=== PATIENT | female | born 1935 | race Caucasian/White ===

== ENCOUNTER 2025-02-26 22:01 | Emergency (ER) | payer OTHER, SELFPAY ==
[2025-02-26 22:04] VITALS: BP 144/97
[2025-02-26 22:47] LABS: % Basophils 0.4 % (0-2); % Eosinophils 0.5 % (0-6); % Immature Granulocytes 0.3 % (0-0.5); % Lymphocytes 27.1 % (20.5-51.1); % Monocytes 7.8 % (1.7-9.3); % Neutrophils 63.9 % (42.2-75.2); Absolute Lymphocytes 2.1 10^3/uL (1.2-3.4); Absolute Monocytes 0.6 10^3/uL (0.1-0.6); Absolute Neutrophils 4.8 10^3/uL (1.4-6.5); Hematocrit 38.9 % (37.0-47.0); Hemoglobin 12.9 g/dL (12.0-16.0); Mean Corp Hgb Conc. 33.2 g/dL (33.0-37.0); Mean Corpuscular Volume 96.5 fL (81.0-99.0); Mean Platelet Volume 9.1 fL (7.4-10.4); Nucleated Red Blood Cells % 0 %; Platelet Count 315 10^3/uL (130-400); Red Blood Cell Count 4.03 10^6/uL (4.20-5.40); Red Cell Dist. Width 13.2 % (11.5-14.5); White Blood Cell Count 7.6 10^3/uL (4.8-10.8)
[2025-02-26 22:59] LABS: ALT (SGPT) 22 U/L (0-35); AST (SGOT) 28 U/L (14-36); Albumin 4.7 g/dl (3.5-5.0); Alkaline Phosphatase 77 U/L (38-126); Blood Urea Nitrogen 21 mg/dl (7-17); Calcium 9.8 mg/dl (8.4-10.2); Carbon Dioxide 32 mmol/L (22-30); Chloride 103 mmol/L (98-107); Glucose 108 mg/dl (70-99); Potassium 4.4 mmol/L (3.5-5.1); Sodium 140 mmol/L (135-145); Total Bilirubin 0.5 mg/dl (0.2-1.3); Total Protein 7.3 g/dl (6.3-8.2); eGFR > 60.00
[2025-02-26 23:08] LABS: Troponin I < 0.012 ng/ml
[2025-02-27 00:17] VITALS: BP 198/75
--- NOTE | 2025-02-27 00:17 | ED.GENMED ---
History of Present Illness
General
Chief Complaint: Blood Pressure Problem
Source: patient
Exam Limitations: none
Time Seen by Provider: 02/27/25 00:15
Nursing documentation reviewed up to this point in time: agreed with
History of Present Illness
History of Present Illness:
This is a 89-year-old female with a past medical history of hypertension, hypercholesterol presents emergency department today with concerns of high blood pressure. Patient reports that the past 2 evenings, she got a home blood pressure reading of
200/100. She reports that this time, she felt flushed and warm. Patient states that recently, there was a change made to her blood pressure medication as a result, she has been instructed to check her blood pressure daily. She has automatic cuff
in which readings are sent directly to her primary care provider. Patient reports that currently she takes lisinopril and nebivolol together in the morning but her previously she was on hydrochlorothiazide in the morning and lisinopril at night.
The hydrochlorothiazide was stopped because she had swelling in her lower extremities. Currently, she feels well and notes some mild feeling of warmth in her cheeks but she denies chest pain, shortness of breath, headaches, dizziness,
lightheadedness. She denies any syncopal episodes.
Review of Systems
Review of Systems
All Other Systems: ROS reviewed and negative except as documented in HPI and ROS
Phy Exam
Physical Exam
Physical Exam:
General: Patient is well appearing and in no acute distress; non-toxic
Skin: Warm and dry, no rashes or lesions
Head: Normocephalic, atraumatic
Eyes: Sclera non-icteric. EOMs intact.
Cardiac: Regular rate and rhythm, no murmurs
Peripheral Vascular: No lower extremity swelling or edema
Pulm: Normal respiratory effort no wheezes, rales, rhonchi
Neuro: CN II-XII intact, no focal neurologic deficits.
Psychiatric: Appropriate mood and affect.
Course
Orders/Labs/Results
Orders:
Orders
06/02/25 22:06
ECG [Electrocardiogram (*1)] Urgent
Reason for Study: Hypertension, Benign
EKG- Treatment ONCE
02/26/25 22:21
Complete Blood Count/With Diff Urgent
Comprehensive Metabolic Panel Urgent
Troponin I Urgent
Abnormal Lab Results
02/26/25
22:21
RBC 4.03 L 10^6/uL
(4.20-5.40)
MCH 32.0 H pg
(27.0-31.0)
Carbon Dioxide 32 H mmol/L
(22-30)
BUN 21 H mg/dl
(7-17)
Glucose 108 H mg/dl
(70-99)
02/26/25 22:21
02/26/25 22:21
Vital Signs
Initial and Last Documented VS:
Initial Vital Signs
Temp Pulse Resp BP Pulse Ox
98.1 F 65 20 144/97 99
02/26/25 22:04 02/26/25 22:04 02/26/25 22:04 02/26/25 22:04 02/26/25 22:04
Last Documented Vital Signs
Temp Pulse Resp BP Pulse Ox
98.1 F 61 18 181/72 99
02/26/25 22:04 02/27/25 01:23 02/27/25 01:23 02/27/25 01:00 02/27/25 01:23
MDM/Problems Addressed
Differential Diagnosis Includes:
Differentials include essential hypertension, medication change, ACS,
MDM/Problems Addressed:
This is a 89-year-old female with a past medical history of hypertension, hypercholesterol presents emergency department today with concerns of high blood pressure. She was doing a routine check when she noticed that her blood pressure at home was
200 and subsequent reading was 210. She felt flushed at the time. She denies any headaches or chest pain. Upon arrival to the emergency department, her blood pressure was 144/97. On my assessment, her blood pressure systolically was 178/100.
The blood pressure came down without intervention. Currently she is asymptomatic. Her CBC is unremarkable, her CMP shows no signs of endorgan damage. Her troponin is undetectable. Her EKG shows no ischemic changes. Suspect recent elevations in
her blood pressure as a result of recent medication changes and changes in the timing of her blood pressure medications. Patient present with her children in the ER. Patient reports that they will ensure that she calls her primary tomorrow
morning to schedule follow-up appointment in see if she can start to take her lisinopril at night to help manage her evening high blood pressures. Patient stable for discharge.
Chronic conditions affecting care:
Hypertension, hypercholesterolemia
*Pulse Oximetry
Patient hypoxic: no
*EKG
EKG Intrepretation Date: 02/27/25
Interpretation: normal
Comparison EKG: no changes
Heart Rate: 62
Rate: normal
Rhythm: sinus
Gipsy: normal axis
Interval: normal interval
*Critical Care Note
Total Time (30-74mins, 75-104mins- exclusive of procedures): Not Applicable
Data Reviewed
Review of Other/Old Records Reveals: Records (No previous ER physician documentation to review, no discharge summary to review)
Source: patient and records
ED Attending Note
-
Portions of this chart may have been created with voice recognition software.� Occasional wrong word or��sound alike� substitutions may have occurred due to the inherent limitations of voice recognition software.
Discharge Plan
Departure
Patient Disposition: Home (Routine Discharge)
Date of Disposition: 02/27/25
Time of Disposition: 01:08
Patient with high blood pressure during this ER visit?: Yes
Condition: Good
Discharge Problem:
Essential hypertension
Instructions: High Blood Pressure (DC), BLOOD PRESSURE
Activity Restrictions/Additional Instructions:
PLEASE CALL YOUR PRIMARY CARE PROVIDER TOMORROW MORNING TO SCHEDULE A FOLLOW UP APPOINTMENT TO DISCUSS YOUR MEDICATIONS.
PLEASE RETURN EMERGENCY DEPARTMENT SHOULD YOU DEVELOP CHEST PAIN, SHORTNESS OF BREATH, HEADACHE, DIZZINESS, LIGHTHEADEDNESS, NECK PAIN, FAINTING SPELLS, OR ANY OTHER SIGNS OR SYMPTOMS WORRISOME TO YOU.
Interventions
Interventions:
*Risk Screen - Suicide Last Done: 02/27/25 01:00
*General Assessment Last Done: 02/26/25 22:04
*Neglect/Abuse Screening Last Done: 02/27/25 01:25
*ED- Fall Risk Assessment Last Done: 02/27/25 01:00
*ED COVID-19 Vaccine History Last Done: 02/27/25 01:00
*Nursing Disposition Last Done: 02/27/25 01:25
ED- Cardiac Assessment Last Done: 02/27/25 01:00
ED- Neurological Assessment Last Done: 02/27/25 01:00
ED- Pulmonary Assessment Last Done: 02/27/25 01:00
Discharge Date and Time
Discharge Date/Time: 02/27/25 01:25
Print Language: [place]
[2025-02-27 00:22] VITALS: BP 192/68
[2025-02-27 00:45] VITALS: BP 178/104
[2025-02-27 01:00] VITALS: BP 181/72
[2025-02-27 01:08] VITALS: BMI 23.2
== END 2025-02-27 01:25 | disposition home or self-care (01) ==
LOC: EMR 22:01
PROVIDERS: EMERGENCY PHYSICIAN Emergency Medicine; FAMILY PHYSICIAN Family Medicine
DX: I10 Essential (primary) hypertension (principal); E78.00 Pure hypercholesterolemia, unspecified; R23.2 Flushing; Z79.899 Other long term (current) drug therapy
CPT/HCPCS: 99283; 80053; 84484; 85025; 93005